=== PATIENT | male | born 1970 | race Caucasian/White ===

== ENCOUNTER 2017-01-06 19:38 | Inpatient (IN) | payer OTHER ==
[~2017-01-06] VITALS: Ht 177.8 cm; Wt 72.0 kg
[2017-01-06] MEDS ORDERED: SOD CHLORIDE 0.9% 1,000 ML IV STA (22:04)
[2017-01-06] MEDS ORDERED: OMEP20CA16 PO (22:20)
[2017-01-06] MEDS ORDERED: CITA20TA11 PO (22:20)
--- NOTE | 2017-01-06 22:21 | ERD ---
ER Documentation Chief Complaint Date/Time DATE: 01/06/17 TIME: 22:18 Chief Complaint Pt c/o epigastric pain for a month HPI 46-year-old male presents in emergency department for complaints of epigastric pain for 6 months now, worst in the last month. Patient was seen in a different emergency department, was told to possibly have a bleeding ulcer, was diagnosed also have gastritis. Patient is currently is on omeprazole. Patient's history of [id number] years ago. Patient described the pain as sharp pain, 6/10 scale, accompanied with acid reflux, intermittent. Patient denies any fever or chills. Patient's epigastric pain radiates to the back. Patient has history of hemorrhoids, has on and off rectal bleeding at times. Patient has scheduled EGD and colonoscopy in February 10, already seen a GI specialist. Patient states that the pain becomes more severe that is why he is here in the emergency department. ROS All systems reviewed and are negative except as per history of present illness. Medications Home Meds Reported Medications Citalopram Hydrobromide* (Celexa*) Unknown Strength Tablet, PO DAILY, #30 TAB 01/06/17 Omeprazole* (Omeprazole*) Unknown Strength Capsule., PO BID, #20 01/06/17 Allergies Allergies: Coded Allergies: No Known Allergy (Unverified , 01/06/17) PMhx/Soc History of Surgery: No Anesthesia Reaction: No Hx Neurological Disorder: No Hx Respiratory Disorders: No Hx Cardiac Disorders: No Hx Psychiatric Problems: No Hx Miscellaneous Medical Probl: Yes (gastroenteritis, ulcers, GERD, hemorrhoids , anemia) Hx Alcohol Use: Yes Hx Substance Use: No Hx Tobacco Use: Yes Smoking Status: Current every day smoker FmHx Family History: No coronary disease, No diabetes, No other Physical Exam Vitals Vital Signs Date Time Temp Pulse Resp B/P Pulse Ox O2 Delivery O2 Flow Rate FiO2 01/06/17 19:53 98.3 84 18 138/88 100 Physical Exam GENERAL: The patient is well developed and appropriate for usual state of health, in no apparent distress. CHEST: Clear to auscultation bilaterally. There are no rales, wheezes or rhonchi. HEART: Regular rate and rhythm. No murmurs, clicks, rubs or gallops. No S3 or S4. ABDOMEN: Soft, nontender and nondistended. Good bowel sounds. No rebound or guarding. No gross peritonitis. No gross organomegaly or masses. No [place] sign or McBurney point tenderness. BACK: No midline or flank tenderness. EXTREMITIES: Equal pulses bilaterally. There is no peripheral clubbing, cyanosis or edema. No focal swelling or erythema. Full range of motion. Grossly neurovascularly intact. NEURO: Alert and oriented. Cranial nerves 2-12 intact. Motor strength in all 4 extremities with 5/5 strength. Sensation grossly intact. Normal speech and gait. SKIN: There is no apparent rash or petechia. The skin is warm and dry. HEMATOLOGIC AND LYMPHATIC: There is no evidence of excessive bruising or lymphedema. No gross cervical, axillary, or inguinal lymphadenopathy. Result Diagram: 01/06/177 01/06/177 Results 24 hrs Laboratory Tests Test 01/06/17 22:17 White Blood Count 9.910^3/ul Red Blood Count 5.4210^6/ul Hemoglobin 14.1g/dl Hematocrit 43.9% Mean Corpuscular Volume 81.0fl Mean Corpuscular Hemoglobin 26.0pg Mean Corpuscular Hemoglobin Concent 32.1g/dl Red Cell Distribution Width % Platelet Count 27378^3/UL Mean Platelet Volume 9.2fl Neutrophils % 47.0% Lymphocytes % 41.0% Monocytes % 9.0% Eosinophils % 3.0% Neutrophils # 4.710^3/ul Lymphocytes # 4.110^3/ul Monocytes # 0.910^3/ul Eosinophils # 0.310^3/ul Platelet Estimate PLT APPEAR ADEQUATE Urine Color LT. YELLOW Urine Clarity CLEAR Urine pH 5.5 Urine Specific [place] 1.020 Urine Ketones NEGATIVE Urine Nitrite NEGATIVE Urine Bilirubin NEGATIVE Urine Urobilinogen 0.2 E.U./dL Urine Leukocyte Esterase NEGATIVE Urine Hemoglobin NEGATIVE Urine Glucose NEGATIVE% Urine Total Protein NEGATIVE Sodium Level 141mmol/L Potassium Level 3.9mmol/L Chloride Level 109mmol/L Carbon Dioxide Level 25mmol/L Anion Gap 11 Blood Urea Nitrogen 12mg/dl Creatinine 0.70mg/dl Glucose Level 127mg/dl Calcium Level 9.5mg/dl Total Bilirubin 0.0mg/dl Direct Bilirubin 0.00mg/dl Indirect Bilirubin 0.0mg/dl Aspartate Amino Transf (AST/SGOT) 21IU/L Alanine Aminotransferase (ALT/SGPT) 24IU/L Alkaline Phosphatase 64IU/L Troponin I < 0.012ng/ml Total Protein 6.0g/dl Albumin 4.0g/dl Globulin 2.00g/dl Albumin/Globulin Ratio 2.00 Lipase 113U/L Current Medications Medications (Trade) Dose Ordered Sig/Tony Route PRN Reason Start Time Stop Time Status Last Admin Dose Admin Sodium Chloride (NS) 1,000 ml @ 1,000 mls/hr Q1H STAT IV 01/06/17 22:04 01/06/17 23:03 DC 01/06/17 22:39 Pantoprazole 40 mg 40 mg ONCE ONCE IV 01/06/17 22:30 01/06/17 22:31 DC 01/06/17 22:42 Sodium Chloride (NS) 100 ml @ ud STK-MED ONCE .ROUTE 01/06/17 23:42 01/06/17 23:43 DC Iohexol (Omnipaque 300mg/ ml) 150 ml STK-MED ONCE .ROUTE 01/06/17 23:43 01/06/17 23:44 DC Protonix was given here in emergency department and IV fluids normal saline 1 L bolus. EKG was done, read by me and is normal sinus rhythm at a rate of 81, normal axis , there is no ST changes or changes in the EKG that indicates any cardiac emergencies at this time. Patient's EKG was also reviewed by Dr. Eastman. Impression: no acute findings on EKG PROCEDURE: CT ABDOMEN/PELVIS WITH CONTRAST CLINICAL INDICATION: 46-year-old male with abdominal pain. TECHNIQUE: The study was performed utilizing a GE [employer] VCT 64-slice CT scanner. Direct axial sections were obtained through the abdomen and pelvis with the use of 100 cc of at nonionic intravenous contrast material. Sagittal and coronal reformations were obtained. One or more of the following dose reduction techniques were utilized: automated exposure control, adjustment of the mA and/or kV according to patient's size or use of iterative reconstruction technique. The images were reviewed on a PACS workstation. CTD/vol = 8.6 mGy; Total Exam DLP = 527.5 mGy-cm. COMPARISON: None. FINDINGS: There is trace bibasilar subsegmental atelectasis. There is no evidence for significant pleural effusion. The liver has a normal size and contour without focal areas of abnormal density or contrast enhancement. No intrahepatic nor extrahepatic biliary ductal dilatation is seen. The gallbladder demonstrates no wall thickening nor pericholecystic fluid. No biliary stones are evident. The pancreas is without areas of abnormal attenuation or contrast enhancement. There is a filling defect identified within the proximal splenic vein which may represent flow artifact however this is worrisome for nonocclusive thrombus. This spleen is identified and has a normal size without abnormal density or contrast enhancement. The adrenal glands are unremarkable. The kidneys are functional bilaterally without abnormal density. No hydroureteronephrosis nor nephroureterolithiasis is evident. The urinary bladder contains urine. There is no evidence for bowel obstruction. The appendix is visualized and is without edema or surrounding inflammatory reaction. The prostate is not enlarged. There is no significant free fluid. The aortoiliac vessels are mildly calcified but without aneurysmal dilatation. The osseous structures are intact. IMPRESSION: 1. Questionable partially occlusive thrombus within the splenic vein. 2. No CT evidence for appendicitis. 3. Mild vascular calcifications. .Juan F Julian MD, MD Date Time Electronically viewed and signed by .Juan F Julian MD, MD on 01/07/2017 00:36 .M/ CC: PINKY ALTMAN NP Procedures/MDM Medical Decision Making: Discussed this case with my attending physician, Dr. Eastman, patient would need further evaluation, more radiology exams for further evaluation of the possible questionable thrombus in this splenic vein, patient will be admitted to the hospital, patient was advised about this, understands the plan, and with the plan. Dr. Eastman will facilitate patient's admission to the hospital. Departure Diagnosis: Primary Impression: Epigastric pain Condition: Stable PINKY ALTMAN NP Jan 06, 2017 22:21 PINKY ALTMAN NP Jan 06, 2017 22:21
[2017-01-06] MEDS ORDERED: PANTOPRAZOLE 40 MG INJ IV ONE (22:30)
[2017-01-06 22:35] LABS: ADD SCAN DIFF NO
[2017-01-06 22:44] LABS: ADD UMIC NO; UR BILIRUBIN (Dip) NEGATIVE (NEGATIVE); UR BLOOD (Dip) NEGATIVE (NEGATIVE); UR CLARITY CLEAR (CLEAR); UR COLOR LT. YELLOW (YELLOW); UR GLUCOSE (Dip) NEGATIVE (NEGATIVE); UR KETONES (Dip) NEGATIVE (NEGATIVE); UR LEUKOCYTE ESTERASE (Dip) NEGATIVE (NEGATIVE); UR NITRITE (Dip) NEGATIVE (NEGATIVE); UR TOTAL PROTEIN (Dip) NEGATIVE (NEGATIVE); UR UROBILINOGEN (Dip) 0.2 E.U./dL (0.1-1.0)
[2017-01-06 23:00] LABS: ABNORMAL IP MESSAGE 1; HEMATOCRIT 43.9 % (42.0-52.0); HEMOGLOBIN 14.1 g/dl (14.0-18.0); MEAN CORPUSCULAR HGB CONC 32.1 g/dl (32.0-37.0); MEAN PLATELET VOLUME 9.2 fl (7.4-10.4); PLATELET COUNT 395 10^3/UL (140-415); RED BLOOD COUNT 5.42 10^6/ul (4.70-6.10); WHITE BLOOD COUNT 9.9 10^3/ul (4.8-10.8)
[2017-01-06 23:17] LABS: EOSINOPHILS # 0.3 10^3/ul (0.0-0.5); LYMPHOCYTES # 4.1 10^3/ul (0.8-2.9); MONOCYTE # 0.9 10^3/ul (0.3-0.9); NEUTROPHIL # 4.7 10^3/ul (1.6-7.5); PLATELET ESTIMATE PLT APPEAR ADEQUATE
[2017-01-06] MEDS ORDERED: SOD CHLORIDE 0.9% 100 ML ONE (23:42)
[2017-01-06] MEDS ORDERED: IOHEXOL 300MG/ML 150 ML BTL ONE (23:43)
[2017-01-06 23:49] LABS: CALCIUM 9.5 mg/dl (8.4-10.2); CREATININE 0.7 mg/dl (0.61-1.24); POTASSIUM 3.9 mmol/L (3.5-5.1)
[2017-01-07] VITALS (14 sets, daily range): BP systolic 149–167; BP diastolic 67–90; PULSE 57–82; RESP 18–19; TEMP 97; Ht 177.8 cm; Wt 72.0 kg
--- NOTE | 2017-01-07 00:37 | RADRPT ---
PROCEDURE: CT ABDOMEN/PELVIS WITH CONTRAST CLINICAL INDICATION: 46-year-old male with abdominal pain. TECHNIQUE: The study was performed utilizing a GE [employer]ed VCT 64-slice CT scanner. Direct axia l sections were obtained through the abdomen and pelvis with the use of 100 cc of at nonionic intrav enous contrast material. Sagittal and coronal reformations were obtained. One or more of the followi ng dose reduction techniques were utilized: automated exposure control, adjustment of the mA and/or kV according to patient's size or use of iterative reconstruction technique. The images were review ed on a PACS workstation. CTD/vol = 8.6 mGy; Total Exam DLP = 527.5 mGy-cm. COMPARISON: None. FINDINGS: There is trace bibasilar subsegmental atelectasis. There is no evidence for significant pleural eff usion. The liver has a normal size and contour without focal areas of abnormal density or contrast enhancement. No intrahepatic nor extrahepatic biliary ductal dilatation is seen. The gallbladder dem onstrates no wall thickening nor pericholecystic fluid. No biliary stones are evident. The pancreas is without areas of abnormal attenuation or contrast enhancement. There is a filling defect identifi ed within the proximal splenic vein which may represent flow artifact however this is worrisome for nonocclusive thrombus. This spleen is identified and has a normal size without abnormal density or c ontrast enhancement. The adrenal glands are unremarkable. The kidneys are functional bilaterally wit hout abnormal density. No hydroureteronephrosis nor nephroureterolithiasis is evident. The urinary b ladder contains urine. There is no evidence for bowel obstruction. The appendix is visualized and is without edema or surrounding inflammatory reaction. The prostate is not enlarged. There is no si gnificant free fluid. The aortoiliac vessels are mildly calcified but without aneurysmal dilatation . The osseous structures are intact. IMPRESSION: 1. Questionable partially occlusive thrombus within the splenic vein. 2. No CT evidence for appendicitis. 3. Mild vascular calcifications. .Juan F Julian MD, Date Time Electronically viewed and signed by .Juan F Julian MD, on 01/07/2017 00:36 .M/
[2017-01-07] MEDS ORDERED: CITA-104 PO (01:42)
[2017-01-07] MEDS ORDERED: EXCED PO (01:42)
[2017-01-07] MEDS ORDERED: MULTI PO (01:42)
[2017-01-07] MEDS ORDERED: NACL 0.9% 3 ML SYG IV SCH (02:30)
[2017-01-07] MEDS: SOD CHLORIDE 0.9% 1,000 ML IV SCH ×2 (02:57→22:26)
--- NOTE | 2017-01-07 04:36 | HP ---
Date/Time of Note Date/Time of Note DATE: 01/07/17 TIME: 04:29 Assessment/Plan VTE Prophylaxis VTE Prophylaxis Intervention: SCD's Lines/Catheters IV [facility] Peripheral IV Assessment/Plan Chief Complaint/Hosp Course This is a 38-year-old male being admitted to telemetry floor for: #1 Abdominal pain: Possibly secondary to gastritis versus peptic ulcer disease versus other etiology. Protonix IV. Will consult GI for further evaluation and possible EGD/colonoscopy. Patient has not eaten since yesterday and is requesting to eat, I will put him currently on a full liquid diet with the possibility that patient may be needing bowel prep. #2 Splenic vein thrombosis: This possibly could be contributing to the abdominal pain. Will consult vascular surgery for further recs. #3 Anxiety: Continue citalopram daily. #4 Heavy alcohol use: banana bag, ativan iv prn #5 GI DVT prophylaxis: SCDs, Protonix Problems: HPI/ROS Admit Date/Time Admit Date/Time Jan 07, 2017 at 01:24 Hx of Present Illness Chief complaint: Abdominal pain 6 months 46-year-old male presents in emergency department for complaints of epigastric pain for 6 months now, worst in the last month. Patient was seen in a different emergency department, was told to possibly have a bleeding ulcer, was diagnosed also have gastritis. Patient is currently is on omeprazole. Patient's history of bleeding 15 years ago. Patient described the pain as sharp pain, 6/10 scale, accompanied with acid reflux, intermittent. Patient denies any fever or chills. Patient's epigastric pain radiates to the back. Patient has history of hemorrhoids, has on and off rectal bleeding at times. Patient states that the pain becomes more severe that is why he is here in the emergency department. Allergies: NKDA Medications: See SEP ROS Const: As per HPI Eyes : No pain discharge or redness or change in visual acuity ENT: No pain, sore throat, congestion, congestion, dysphagia or discharge Respiratory: No shortness of breath, cough, sputum, wheezing, or pleuritic pain Cardiovascular: No chest pain, palpitation, PND, or edema GI : As per HPI Genitourinary: No dysuria, hematuria, flank pain , discharge or CVA tenderness Musculoskeletal: No joint pain, back pain, neck pain, restricted range of motion in neck or joints Skin: No rash, bruising or hives Neuro: No headache, dizziness, syncope, seizure, focal weakness Endocrine: No polyuria, polydipsia, temperature intolerance Psych: No hallucination, depression, anxiety or suicidal ideation PMH/Family/Social Past Medical History Bleeding ulcers, hemorrhoids, anxiety Past Surgical History Past Surgical Hx: no surgical history Family History Significant Family History: no pertinent family hx Social History Alcohol Use: heavy (1-4 beers per night) Smoking Status: Current every day smoker (1 pack per day 30 years) Exam/Review of Systems Vital Signs Vitals Vital Signs Date Time Temp Pulse Resp B/P Pulse Ox O2 Delivery O2 Flow Rate FiO2 01/07/17 04:02 97.7 62 19 156/86 97 01/07/17 03:43 Room Air Exam Exam General: Patient is well-developed well-nourished The patient is alert oriented -3 lying comfortably in bed. HEENT: Atraumatic, normocephalic. The pupils are equal, round and reactive. Extraocular motor are intact Neck: Supple with full range of motion. No rigidity or meningismus Chest: Nontender Lungs: Clear to auscultation bilaterally no crackles rales or wheezing Heart: Normal S1-S2, Regular rhythm and rate. No murmur. Abdomen: Soft, tenderness to palpation at the epigastric region, normal bowel sounds Extremities: Normal to inspection, no edema no cyanosis Neurologic: Normal mental status, speech normal, cranial nerves II through XII are intact, motor and sensory are intact, no focal weakness Labs Result Diagram: 01/06/177 01/06/177 Medications Medications Current Medications Sodium Chloride (NS) 1,000 ml @ 50 mls/hr Q20H IV Last administered on t 02:57; Admin Dose 50 MLS/HR; Start 01/07/17 at 02:26 Ondansetron HCl (Zofran Inj) 4 mg Q6H PRN IV NAUSEA AND/OR VOMITING; Start at 02:30 Morphine Sulfate (morphine) 2 mg Q4H PRN IV PAIN LEVEL 7-10; Start 01/07/17 at 02:30 Pantoprazole (Protonix Iv) 40 mg DAILY@06 IV ; Start 01/07/17 at 06:00 Citalopram Hydrobromide (Celexa) 40 mg DAILY PO ; Start 01/07/17 at 09:00 HUSSAIN SALAZAR Jan 07, 2017 04:36
[2017-01-07] MEDS: PANTOPRAZOLE 40 MG INJ IV SCH (05:43)
[2017-01-07] MEDS ORDERED: LORAZEPAM 2 MG INJ IV PRN (08:00)
[2017-01-07] MEDS: CITALOPRAM 20 MG TAB PO SCH (08:56)
[2017-01-07] MEDS ORDERED: MULTIVITAMINS 10 ML, THIAMINE 100 MG, FOLIC ACID 1 MG in SOD CHLORIDE 0.9% 1,000 ML IVPB SCH (09:00)
--- NOTE | 2017-01-07 10:06 | PN ---
Date/Time of Note Date/Time of Note DATE: 01/07/17 TIME: 09:46 Assessment/Plan VTE Prophylaxis VTE Prophylaxis Intervention: SCD's Lines/Catheters IV Catheter Type (from Nrsg): Peripheral IV Assessment/Plan Assessment/Plan 46 yo M with no sig pmhx admitted for epigastric pain incidentally found to have splenic vein thrombosis #epigastric pain: clinical location suggestive of esophagitis/gastritis -GI to see today for likely EGD #splenic vein thrombosis: etiology and chronicity unclear. Pt without known risk factors which would predispose to VTE in portal system (ie h/o chronic liver disease) -heme consult placed to Dr Emmanuel -thrombophilia labs ordered -defer ATC pending EGD to evaluate for EVs prior to starting ATC dispo: pending GI and heme evals Subjective 24 Hr Interval Summary Free Text/Dictation Pt reports he is still having epigastric pain. Of note has been taking up to 12 Excedrin daily for headaches. Re finding of splenic vein thrombosis, pt denies any hx of chronic liver disease , previous VTE or family history of VTE. Exam/Review of Systems Vital Signs Vitals Vital Signs Date Time Temp Pulse Resp B/P Pulse Ox O2 Delivery O2 Flow Rate FiO2 01/07/17 08:00 59 01/07/17 07:13 97.8 19 156/82 97 01/07/17 03:43 Room Air Intake and Output 01/06/17 01/06/17 01/07/17 15:00 23:00 07:00 Intake Total 150 ml Balance 150 ml Exam anxious, laying in bed no mrg lungs clear mild ttp epigastric region and sup aspect of LUQ no rashes Results Result Diagram: 01/06/17221601/06/172216 Results 24 hrs Laboratory Tests Test 01/06/17 22:17 White Blood Count 9.9 Red Blood Count 5.42 Hemoglobin 14.1 Hematocrit 43.9 Mean Corpuscular Volume 81.0 L Mean Corpuscular Hemoglobin 26.0 L Mean Corpuscular Hemoglobin Concent 32.1 Red Cell Distribution Width Platelet Count 395 Mean Platelet Volume 9.2 Neutrophils % 47.0 Lymphocytes % 41.0 Monocytes % 9.0 Eosinophils % 3.0 Neutrophils # 4.7 Lymphocytes # 4.1 H Monocytes # 0.9 Eosinophils # 0.3 Platelet Estimate PLT APPEAR ADEQUATE Urine Color LT. YELLOW Urine Clarity CLEAR Urine pH 5.5 Urine Specific [place] 1.020 Urine Ketones NEGATIVE Urine Nitrite NEGATIVE Urine Bilirubin NEGATIVE Urine Urobilinogen 0.2 E.U./dL Urine Leukocyte Esterase NEGATIVE Urine Hemoglobin NEGATIVE Urine Glucose NEGATIVE Urine Total Protein NEGATIVE Sodium Level 141 Potassium Level 3.9 Chloride Level 109 Carbon Dioxide Level 25 Anion Gap 11 Blood Urea Nitrogen 12 Creatinine 0.70 Glucose Level 127 Calcium Level 9.5 Total Bilirubin 0.0 L Direct Bilirubin 0.00 Indirect Bilirubin 0.0 Aspartate Amino Transf (AST/SGOT) 21 Alanine Aminotransferase (ALT/SGPT) 24 Alkaline Phosphatase 64 Troponin I < 0.012 Total Protein 6.0 L Albumin 4.0 Globulin 2.00 Albumin/Globulin Ratio 2.00 Lipase 113 Medications Medications Current Medications Sodium Chloride (NS) 1,000 ml @ 50 mls/hr Q20H IV Last administered on 02:57; Admin Dose 50 MLS/HR; Start 01/07/17 at 02:26 Ondansetron HCl (Zofran Inj) 4 mg Q6H PRN IV NAUSEA AND/OR VOMITING; Start at 02:30 Morphine Sulfate (morphine) 2 mg Q4H PRN IV PAIN LEVEL 7-10; Start 01/07/17 at 02:30 Pantoprazole (Protonix Iv) 40 mg DAILY@06 IV Last administered on 01/07/17 05: 43; Admin Dose 40 MG; Start 01/07/17 at 06:00 Citalopram Hydrobromide (Celexa) 40 mg DAILY PO Last administered on 01/07/17 08:56; Admin Dose 40 MG; Start 01/07/17 at 09:00 Lorazepam (Ativan) 1 mg Q6H PRN IV AGITATION/ANXIETY; Start 01/07/17 at 08:00 Procedures Procedures labs reviewed. no transaminitis. INR ordered albumin nl imaging results reviewed. Of note, called radiology and spoke to Dr Calhoun who stated that on his review of imaging, it cannot be determined whether thrombus is acute or chronic FLORA GLASS MD Jan 07, 2017 10:05
[2017-01-07 12:12] LABS: PROTIME 13.2 Sec (12.2-14.2)
[2017-01-07] MEDS: morphine 2 MG INJ IV PRN ×3 (13:05→21:59)
[2017-01-07] MEDS: ONDANSETRON 4 MG INJ IV PRN ×2 (13:10→17:29)
--- NOTE | 2017-01-07 15:14 | CONS ---
Date/Time of Note Date/Time of Note DATE: 01/07/17 TIME: 15:09 Assessment/Plan Assessment/Plan Chief Complaint/Hosp Course 46 yo alcoholic male who presents with abdominal pain found with partial occlusion of the splenic vein. The most likely cause of splenic vein thrombosis is underlying cirrhosis but given that there is no cirrhosis seen on the CT A/P we must rule out other causes. Other etiologies of the splenic vein thrombosis may include pancreatitis of hepatocellular ca especially in a patient with a history of heavy drinking. A normal lactate however makes pancreatitis unlikely. We also have to rule out hematogic disorders such as, paroxysmal nocturnal hemoglobinuria, myeloproliferative disorder and hyper coagulable states. Given the relatively unremarkable CBC however, a myeloproliferate disorder or PNH would be unlikely. -will complete the hypercoagulable workup and check for antiphospholipid syndrome. AT III, FVL, Protein C and S levels were already ordered by primary team -will check AFP to evaluate for underlying HCC -f/u Hep panel -Given patient is currently not actively bleeding will start Eliquis 10mg BID x 7 days then decrease to 5mg BID. If we are unable to given an underlying cause of the splenic vein thrombosis, pt can receive 3-6 months total of anticoagulation Problems: (1) Splenic vein thrombosis Status: Chronic (2) Epigastric pain Status: Acute Consultation Date/Type/Reason Admit Date/Time Jan 07, 2017 at 01:24 Date of Consultation: Jan 07, 2017 Type of Consultation: Hematology Reason for Consultation splenic vein thrombosis Referring Provider: HUSSAIN SALAZAR Hx of Present Illness 46-year-old male presents in emergency department with epigastric pain for 6 months. He was previously told his abdominal pain was secondary to gastritis but his abdominal pain did not improve with omeprazole. Patient described the pain as sharp pain, 6/10 scale, accompanied with acid reflux, intermittent and radiating to the back. Pt states he has a history of GIB but currently denies any bleeding. A CT A/P was done which revealed a filling defect identified within the proximal splenic vein worrisome for nonocclusive thrombus. This spleen is identified and has a normal size without abnormal density or contrast enhancement. Nor is there any evidence of cirrhosis. We have been consulted for further workup of this splenic vein thrombosis. Constitutional: no complaints, poor po Eyes: no complaints ENT: no complaints Respiratory: pain Cardiovascular: no complaints Gastrointestinal: pain Genitourinary: no complaints Musculoskeletal: no complaints Skin: no complaints Neurologic: no complaints Past Medical History alcoholism Past Surgical History Past Surgical Hx: no surgical history Family History Significant Family History: no pertinent family hx Social History Alcohol Use: heavy (1-4 beers per night) Smoking Status: Current every day smoker (1 pack per day 30 years) Exam/Review of Systems Vital Signs Vitals Vital Signs Date Time Temp Pulse Resp B/P Pulse Ox O2 Delivery O2 Flow Rate FiO2 01/07/17 12:00 82 01/07/17 11:24 97.4 18 167/84 96 01/07/17 03:43 Room Air Intake and Output 01/06/17 01/06/17 01/07/17 15:00 23:00 07:00 Intake Total 150 ml Balance 150 ml Exam Constitutional: alert, oriented Head: normocephalic Eyes: nl conjunctiva ENMT: nl external ears & nose, nl lips & teeth Neck: non-tender, supple Respiratory: clear to auscultation Cardiovascular: regular rate and rhythm Gastrointestinal: distended, tender Musculoskeletal: nl extremities to inspection, nl gait and stance Results Result Diagram: 01/06/177 01/06/17 2217 Results 24 hrs Laboratory Tests Test 01/06/17 22:17 01/07/17 11:40 White Blood Count 9.9 Red Blood Count 5.42 Hemoglobin 14.1 Hematocrit 43.9 Mean Corpuscular Volume 81.0 L Mean Corpuscular Hemoglobin 26.0 L Mean Corpuscular Hemoglobin Concent 32.1 Red Cell Distribution Width Platelet Count 395 Mean Platelet Volume 9.2 Neutrophils % 47.0 Lymphocytes % 41.0 Monocytes % 9.0 Eosinophils % 3.0 Neutrophils # 4.7 Lymphocytes # 4.1 H Monocytes # 0.9 Eosinophils # 0.3 Platelet Estimate PLT APPEAR ADEQUATE Urine Color LT. YELLOW Urine Clarity CLEAR Urine pH 5.5 Urine Specific [place] 1.020 Urine Ketones NEGATIVE Urine Nitrite NEGATIVE Urine Bilirubin NEGATIVE Urine Urobilinogen 0.2 E.U./dL Urine Leukocyte Esterase NEGATIVE Urine Hemoglobin NEGATIVE Urine Glucose NEGATIVE Urine Total Protein NEGATIVE Sodium Level 141 Potassium Level 3.9 Chloride Level 109 Carbon Dioxide Level 25 Anion Gap 11 Blood Urea Nitrogen 12 Creatinine 0.70 Glucose Level 127 Calcium Level 9.5 Total Bilirubin 0.0 L Direct Bilirubin 0.00 Indirect Bilirubin 0.0 Aspartate Amino Transf (AST/SGOT) 21 Alanine Aminotransferase (ALT/SGPT) 24 Alkaline Phosphatase 64 Troponin I < 0.012 Total Protein 6.0 L Albumin 4.0 Globulin 2.00 Albumin/Globulin Ratio 2.00 Lipase 113 Prothrombin Time 13.2 Prothrombin Time Ratio 1.0 INR International Normalized Ratio 1.00 Hepatitis B Surface Antibody NEGATIVE Medications Medications Current Medications Sodium Chloride (NS) 1,000 ml @ 50 mls/hr Q20H IV Last administered on 02:57; Admin Dose 50 MLS/HR; Start 01/07/17 at 02:26 Ondansetron HCl (Zofran Inj) 4 mg Q6H PRN IV NAUSEA AND/OR VOMITING Last administered on 01/07/17 13:10; Admin Dose 4 MG; Start 01/07/17 at 02:30 Morphine Sulfate (morphine) 2 mg Q4H PRN IV PAIN LEVEL 7-10 Last administered on 01/07/17 13:05; Admin Dose 2 MG; Start 01/07/17 at 02:30 Pantoprazole (Protonix Iv) 40 mg DAILY@06 IV Last administered on 01/07/17 05: 43; Admin Dose 40 MG; Start 01/07/17 at 06:00 Citalopram Hydrobromide (Celexa) 40 mg DAILY PO Last administered on 01/07/17 08:56; Admin Dose 40 MG; Start 01/07/17 at 09:00 Lorazepam (Ativan) 1 mg Q6H PRN IV AGITATION/ANXIETY; Start 01/07/17 at 08:00 Nicotine (Nicoderm 21 Mg/ 24hr) 1 patch DAILY TRANSDERM ; Start 01/07/17 at 14: 00 SHELBY TAM M.D. Jan 07, 2017 15:14
[2017-01-07] MEDS: NICOTINE (21 MG/24 HR) PATCH TRANSDERM SCH (15:54)
[2017-01-07 16:20] LABS: HEPATITIS B CORE ANTIBODY NEGATIVE (NEGATIVE)
--- NOTE | 2017-01-07 17:24 | CONS ---
Date/Time of Note Date/Time of Note DATE: 01/07/17 TIME: 17:08 Assessment/Plan Assessment/Plan Additional Assessment/Plan Assessment * Abdominal pain Peptic ulcer disease vs gastritis * Splenic vein thrombosis by CT scan Plan * Protonix 40 mg BID * EGD risks and benefit explained to patient and agreed with the planned procedure Consultation Date/Type/Reason Admit Date/Time Jan 07, 2017 at 01:24 Date of Consultation: Jan 07, 2017 Type of Consultation: gastroenterology Reason for Consultation Abdominal pain Referring Provider: FLORA GLASS MD Hx of Present Illness 46 year old male who was seen at emergency room with chief complaint of abdominal pain which started 6 months ago with associated dyspepsia and pyrosis which gradually become severe 1 month ago.He claimed to have visited multiple emergency room and being told to have gastritis versus peptic ulcer disease. Patient denies any hematemesis,but with occasional hematochezia secondary to hemorrhoids.He denied chest pain,shortness of breath ,but with history of chronic intake of Excedrin. Emergency room course revealed wbc 9.9 ,hemoglobin 14.1 ,hematocrit 43.9.Ct abdomen pelvis Questionable partially occlusive thrombus within the splenic vein.. No CT evidence for appendicitis.. Mild vascular calcifications. I have discussed with the planned procedure and agreed with the plan Constitutional: no complaints, poor po Eyes: no complaints ENT: no complaints Respiratory: pain Cardiovascular: no complaints Gastrointestinal: pain Genitourinary: no complaints Musculoskeletal: no complaints Skin: no complaints Neurologic: no complaints Endocrine: no complaints Lymphatic: no complaints Psychological: nl mood/affect, no complaints Immunologic: no complaints Past Surgical History Past Surgical Hx: no surgical history Social History Alcohol Use: heavy (1-4 beers per night) Smoking Status: Current every day smoker (1 pack per day 30 years) Exam/Review of Systems Vital Signs Vitals Vital Signs Date Time Temp Pulse Resp B/P Pulse Ox O2 Delivery O2 Flow Rate FiO2 01/07/17 16:00 61 01/07/17 15:11 98.0 19 149/69 98 01/07/17 03:43 Room Air Intake and Output 01/06/17 01/06/17 01/07/17 15:00 23:00 07:00 Intake Total 150 ml Balance 150 ml Exam Constitutional: alert, oriented, well developed Psych: nl mood/affect, no complaints Head: atraumatic, normocephalic Eyes: EOMI, PERRL, nl conjunctiva, nl lids, nl sclera ENMT: nl external ears & nose, nl lips & teeth, nl nasal mucosa & septum Neck: non-tender, supple Respiratory: clear to auscultation, normal air movement Cardiovascular: nl pulses, regular rate and rhythm Gastrointestinal: nl liver, spleen, non-tender, soft, tender (epigastric/left upper quadrant) Musculoskeletal: nl extremities to inspection, nl gait and stance Extremities: normal pulses Neurological: [employer] II-XII intact, nl mental status, nl speech, nl strength Skin: nl turgor, No rash or lesions Lymph: nl lymph nodes Results Result Diagram: 01/06/17221601/06/17 221 Results 24 hrs Laboratory Tests Test 01/06/17 22:17 01/07/17 11:10 01/07/17 11:40 White Blood Count 9.9 Red Blood Count 5.42 Hemoglobin 14.1 Hematocrit 43.9 Mean Corpuscular Volume 81.0 L Mean Corpuscular Hemoglobin 26.0 L Mean Corpuscular Hemoglobin Concent 32.1 Red Cell Distribution Width Platelet Count 395 Mean Platelet Volume 9.2 Neutrophils % 47.0 Lymphocytes % 41.0 Monocytes % 9.0 Eosinophils % 3.0 Neutrophils # 4.7 Lymphocytes # 4.1 H Monocytes # 0.9 Eosinophils # 0.3 Platelet Estimate PLT APPEAR ADEQUATE Urine Color LT. YELLOW Urine Clarity CLEAR Urine pH 5.5 Urine Specific [place] 1.020 Urine Ketones NEGATIVE Urine Nitrite NEGATIVE Urine Bilirubin NEGATIVE Urine Urobilinogen 0.2 E.U./dL Urine Leukocyte Esterase NEGATIVE Urine Hemoglobin NEGATIVE Urine Glucose NEGATIVE Urine Total Protein NEGATIVE Sodium Level 141 Potassium Level 3.9 Chloride Level 109 Carbon Dioxide Level 25 Anion Gap 11 Blood Urea Nitrogen 12 Creatinine 0.70 Glucose Level 127 Calcium Level 9.5 Total Bilirubin 0.0 L Direct Bilirubin 0.00 Indirect Bilirubin 0.0 Aspartate Amino Transf (AST/SGOT) 21 Alanine Aminotransferase (ALT/SGPT) 24 Alkaline Phosphatase 64 Troponin I < 0.012 Total Protein 6.0 L Albumin 4.0 Globulin 2.00 Albumin/Globulin Ratio 2.00 Lipase 113 Hepatitis B Surface Antigen NEGATIVE Hepatitis B Core Total Antibody NEGATIVE Hepatitis C Antibody NEGATIVE Prothrombin Time 13.2 Prothrombin Time Ratio 1.0 INR International Normalized Ratio 1.00 Hepatitis B Surface Antibody NEGATIVE Medications Medications Current Medications Sodium Chloride (NS) 1,000 ml @ 50 mls/hr Q20H IV Last administered on 02:57; Admin Dose 50 MLS/HR; Start 01/07/17 at 02:26 Ondansetron HCl (Zofran Inj) 4 mg Q6H PRN IV NAUSEA AND/OR VOMITING Last administered on 01/07/17 13:10; Admin Dose 4 MG; Start 01/07/17 at 02:30 Morphine Sulfate (morphine) 2 mg Q4H PRN IV PAIN LEVEL 7-10 Last administered on 01/07/17 13:05; Admin Dose 2 MG; Start 01/07/17 at 02:30 Pantoprazole (Protonix Iv) 40 mg DAILY@06 IV Last administered on 01/07/17 05: 43; Admin Dose 40 MG; Start 01/07/17 at 06:00 Citalopram Hydrobromide (Celexa) 40 mg DAILY PO Last administered on 01/07/17 08:56; Admin Dose 40 MG; Start 01/07/17 at 09:00 Lorazepam (Ativan) 1 mg Q6H PRN IV AGITATION/ANXIETY; Start 01/07/17 at 08:00 Nicotine (Nicoderm 21 Mg/ 24hr) 1 patch DAILY TRANSDERM Last administered on 15:54; Admin Dose 1 PATCH; Start 01/07/17 at 14:00 Apixaban (Eliquis) 5 mg BID PO ; Start 01/14/17 at 21:00 ALEJANDRA MISTRY MD Jan 07, 2017 17:18
[2017-01-07] MEDS ORDERED: morphine 2 MG INJ IV ONE (20:00)
[2017-01-07] MEDS ORDERED: AL HYDROX/MG HYDROX/SIMETH 30 ML CUP PO ONE (20:00)
[2017-01-07] MEDS ORDERED: APIXABAN 5 MG TABLET PO SCH (21:00)
[2017-01-08] VITALS (18 sets, daily range): BP systolic 141–171; BP diastolic 66–91; PULSE 57–74; RESP 12–22
[2017-01-08] MEDS: SOD CHLORIDE 0.9% 1,000 ML IV SCH ×2 (01:44→15:46)
[2017-01-08] MEDS: PANTOPRAZOLE 40 MG INJ IV SCH ×2 (05:25→21:29)
[2017-01-08 06:53] LABS: ADD SCAN DIFF NO
[2017-01-08 06:56] LABS: ABNORMAL IP MESSAGE 1; BASOPHIL # 0.1 10^3/ul (0.0-0.1); BASOPHILS % 1.1 % (0.0-2.0); EOSINOPHILS # 0.5 10^3/ul (0.0-0.5); EOSINOPHILS % 5.6 % (0.0-7.0); HEMATOCRIT 42.2 % (42.0-52.0); LYMPHOCYTES # 3.2 10^3/ul (0.8-2.9); LYMPHOCYTES % 39.9 % (15.0-51.0); MEAN CORPUSCULAR HEMOGLOBIN 25.4 pg (29.0-33.0); MEAN CORPUSCULAR HGB CONC 30.8 g/dl (32.0-37.0); MEAN CORPUSCULAR VOLUME 82.4 fl (82.0-101.0); MEAN PLATELET VOLUME 8.9 fl (7.4-10.4); MONOCYTE # 0.7 10^3/ul (0.3-0.9); MONOCYTES % 8.9 % (0.0-11.0); NEUTROPHIL # 3.6 10^3/ul (1.6-7.5); NEUTROPHILS % 44.3 % (39.0-77.0); PLATELET COUNT 342 10^3/UL (140-415); RED BLOOD COUNT 5.12 10^6/ul (4.70-6.10); WHITE BLOOD COUNT 8.1 10^3/ul (4.8-10.8)
[2017-01-08 08:06] LABS: ALBUMIN 3.9 g/dl (3.3-4.9); ALBUMIN/GLOBULIN RATIO 2.16; BILIRUBIN,INDIRECT 0.1 mg/dl (0-1.1); BILIRUBIN,TOTAL 0.1 mg/dl (0.2-1.3); CALCIUM 8.9 mg/dl (8.4-10.2); CREATININE 0.76 mg/dl (0.61-1.24); POTASSIUM 3.6 mmol/L (3.5-5.1); TOTAL PROTEIN 5.7 g/dl (6.1-8.1)
[2017-01-08] MEDS: NICOTINE (21 MG/24 HR) PATCH TRANSDERM SCH (08:58)
[2017-01-08] MEDS: morphine 2 MG INJ IV PRN ×3 (08:58→20:04)
[2017-01-08] MEDS: ONDANSETRON 4 MG INJ IV PRN (08:58)
[2017-01-08] MEDS: CITALOPRAM 20 MG TAB PO SCH (08:58)
--- NOTE | 2017-01-08 10:09 | CONS ---
Date/Time of Note Date/Time of Note DATE: 01/08/17 TIME: 10:05 Assessment/Plan Assessment/Plan Chief Complaint/Hosp Course 46 yo alcoholic male who presents with abdominal pain found with partial occlusion of the splenic vein. The most likely cause of splenic vein thrombosis is underlying cirrhosis but given that there is no cirrhosis seen on the CT A/P we must rule out other causes. Other etiologies of the splenic vein thrombosis may include pancreatitis of hepatocellular ca especially in a patient with a history of heavy drinking. A normal lactate however makes pancreatitis unlikely. We also have to rule out hematogic disorders such as, paroxysmal nocturnal hemoglobinuria, myeloproliferative disorder and hyper coagulable states. Although given the relatively unremarkable CBC however, a myeloproliferate disorder or PNH would be unlikely. -will complete the hypercoagulable workup and check for antiphospholipid syndrome. AT III, FVL, Protein C and S levels were already ordered by primary team -will check AFP to evaluate for underlying HCC -f/u Hep panel -will await results of EGD prior to starting anticoagulation -if there is no evidence of active bleeding will start Eliquis 10mg BID x 7 days then decrease to 5mg BID. If we are unable to given an underlying cause of the splenic vein thrombosis, pt can receive 3-6 months total of anticoagulation Approximately 40 min were spent at patient's bedside and in coordination of his care Problems: Consultation Date/Type/Reason Admit Date/Time Jan 07, 2017 at 01:24 Initial Consult Date 01/07/17 Type of Consultation: Hematology Reason for Consultation splenic vein thrombosis Referring Provider: FLORA GLASS MD 24 HR Interval Summary Free Text/Dictation pt to have EGD today. no evidence of bleeding Exam/Review of Systems Vital Signs Vitals Vital Signs Date Time Temp Pulse Resp B/P Pulse Ox O2 Delivery O2 Flow Rate FiO2 01/08/17 08:00 60 01/08/17 07:32 98.0 17 141/82 95 01/07/17 03:43 Room Air Intake and Output 01/07/17 01/07/17 01/08/17 15:00 23:00 07:00 Intake Total 350 ml 850 ml Balance 350 ml 850 ml Exam Constitutional: alert, oriented Psych: nl mood/affect, no complaints Head: normocephalic Eyes: nl conjunctiva ENMT: nl external ears & nose Neck: non-tender, supple Respiratory: clear to auscultation Cardiovascular: regular rate and rhythm Gastrointestinal: soft Musculoskeletal: nl extremities to inspection, nl gait and stance Extremities: normal pulses Results Result Diagram: 01/08/1712 01/08/17 0612 Results 24 hrs Laboratory Tests Test 01/07/17 11:10 01/07/17 11:40 01/08/17 06:12 Hepatitis B Surface Antigen NEGATIVE Hepatitis B Core Total Antibody NEGATIVE Hepatitis C Antibody NEGATIVE Prothrombin Time 13.2 Prothrombin Time Ratio 1.0 INR International Normalized Ratio 1.00 Hepatitis B Surface Antibody NEGATIVE White Blood Count 8.1 Red Blood Count 5.12 Hemoglobin 13.0 L Hematocrit 42.2 Mean Corpuscular Volume 82.4 Mean Corpuscular Hemoglobin 25.4 L Mean Corpuscular Hemoglobin Concent 30.8 L Red Cell Distribution Width Platelet Count 342 Mean Platelet Volume 8.9 Neutrophils % 44.3 Lymphocytes % 39.9 Monocytes % 8.9 Eosinophils % 5.6 Basophils % 1.1 Nucleated Red Blood Cells % 0.0 Neutrophils # 3.6 Lymphocytes # 3.2 H Monocytes # 0.7 Eosinophils # 0.5 Basophils # 0.1 Nucleated Red Blood Cells # 0.0 Sodium Level 141 Potassium Level 3.6 Chloride Level 108 Carbon Dioxide Level 28 Anion Gap 9 Blood Urea Nitrogen 6 L Creatinine 0.76 Glucose Level 89 Calcium Level 8.9 Magnesium Level 2.0 Total Bilirubin 0.1 L Direct Bilirubin 0.00 Indirect Bilirubin 0.1 Aspartate Amino Transf (AST/SGOT) 22 Alanine Aminotransferase (ALT/SGPT) 29 Alkaline Phosphatase 65 Total Protein 5.7 L Albumin 3.9 Globulin 1.80 Albumin/Globulin Ratio 2.16 Medications Medications Current Medications Sodium Chloride (NS) 1,000 ml @ 50 mls/hr Q20H IV Last administered on 01:44; Admin Dose 50 MLS/HR; Start 01/07/17 at 02:26 Ondansetron HCl (Zofran Inj) 4 mg Q6H PRN IV NAUSEA AND/OR VOMITING Last administered on 01/08/17 08:58; Admin Dose 4 MG; Start 01/07/17 at 02:30 Morphine Sulfate (morphine) 2 mg Q4H PRN IV PAIN LEVEL 7-10 Last administered on 01/08/17 08:58; Admin Dose 2 MG; Start 01/07/17 at 02:30 Pantoprazole (Protonix Iv) 40 mg DAILY@06 IV Last administered on 01/08/17 05: 25; Admin Dose 40 MG; Start 01/07/17 at 06:00 Citalopram Hydrobromide (Celexa) 40 mg DAILY PO Last administered on 01/08/17 08:58; Admin Dose 40 MG; Start 01/07/17 at 09:00 Lorazepam (Ativan) 1 mg Q6H PRN IV AGITATION/ANXIETY; Start 01/07/17 at 08:00 Nicotine (Nicoderm 21 Mg/ 24hr) 1 patch DAILY TRANSDERM Last administered on 08:58; Admin Dose 1 PATCH; Start 01/07/17 at 14:00 Apixaban (Eliquis) 5 mg BID PO ; Start 01/14/17 at 21:00 SHELBY TAM M.D. Jan 08, 2017 10:09
--- NOTE | 2017-01-08 11:27 | PN ---
Date/Time of Note Date/Time of Note DATE: 01/08/17 TIME: 11:27 Assessment/Plan VTE Prophylaxis VTE Prophylaxis Intervention: SCD's Lines/Catheters IV Catheter Type (from Nrsg): Peripheral IV Assessment/Plan Assessment/Plan 46 yo M with no sig pmhx admitted for epigastric pain incidentally found to have splenic vein thrombosis #epigastric pain: clinical location suggestive of esophagitis/gastritis -EGD today #splenic vein thrombosis: etiology and chronicity unclear. Pt without known risk factors which would predispose to VTE in portal system (ie h/o chronic liver disease) -heme following -thrombophilia labs ordered -defer ATC pending EGD to evaluate for EVs prior to starting ATC dispo: pending GI and heme evals Subjective 24 Hr Interval Summary Free Text/Dictation Abd pain improving. Anxious about his EGD Exam/Review of Systems Vital Signs Vitals Vital Signs Date Time Temp Pulse Resp B/P Pulse Ox O2 Delivery O2 Flow Rate FiO2 01/08/17 08:00 60 01/08/17 07:32 98.0 17 141/82 95 01/07/17 03:43 Room Air Intake and Output 01/07/17 01/07/17 01/08/17 15:00 23:00 07:00 Intake Total 350 ml 850 ml Balance 350 ml 850 ml Exam nad laying in bed no mrg lungs clear abd soft no le edema labs hepatitis seros neg Results Result Diagram: 01/08/17 0612 01/08/17 0612 Results 24 hrs Laboratory Tests Test 01/07/17 11:40 01/08/17 06:12 Prothrombin Time 13.2 Prothrombin Time Ratio 1.0 INR International Normalized Ratio 1.00 Hepatitis B Surface Antibody NEGATIVE White Blood Count 8.1 Red Blood Count 5.12 Hemoglobin 13.0 L Hematocrit 42.2 Mean Corpuscular Volume 82.4 Mean Corpuscular Hemoglobin 25.4 L Mean Corpuscular Hemoglobin Concent 30.8 L Red Cell Distribution Width Platelet Count 342 Mean Platelet Volume 8.9 Neutrophils % 44.3 Lymphocytes % 39.9 Monocytes % 8.9 Eosinophils % 5.6 Basophils % 1.1 Nucleated Red Blood Cells % 0.0 Neutrophils # 3.6 Lymphocytes # 3.2 H Monocytes # 0.7 Eosinophils # 0.5 Basophils # 0.1 Nucleated Red Blood Cells # 0.0 Sodium Level 141 Potassium Level 3.6 Chloride Level 108 Carbon Dioxide Level 28 Anion Gap 9 Blood Urea Nitrogen 6 L Creatinine 0.76 Glucose Level 89 Calcium Level 8.9 Magnesium Level 2.0 Total Bilirubin 0.1 L Direct Bilirubin 0.00 Indirect Bilirubin 0.1 Aspartate Amino Transf (AST/SGOT) 22 Alanine Aminotransferase (ALT/SGPT) 29 Alkaline Phosphatase 65 Total Protein 5.7 L Albumin 3.9 Globulin 1.80 Albumin/Globulin Ratio 2.16 Medications Medications Current Medications Sodium Chloride (NS) 1,000 ml @ 50 mls/hr Q20H IV Last administered on 01:44; Admin Dose 50 MLS/HR; Start 01/07/17 at 02:26 Ondansetron HCl (Zofran Inj) 4 mg Q6H PRN IV NAUSEA AND/OR VOMITING Last administered on 01/08/17 08:58; Admin Dose 4 MG; Start 01/07/17 at 02:30 Morphine Sulfate (morphine) 2 mg Q4H PRN IV PAIN LEVEL 7-10 Last administered on 01/08/17 08:58; Admin Dose 2 MG; Start 01/07/17 at 02:30 Pantoprazole (Protonix Iv) 40 mg DAILY@06 IV Last administered on 01/08/17 05: 25; Admin Dose 40 MG; Start 01/07/17 at 06:00 Citalopram Hydrobromide (Celexa) 40 mg DAILY PO Last administered on 01/08/17 08:58; Admin Dose 40 MG; Start 01/07/17 at 09:00 Lorazepam (Ativan) 1 mg Q6H PRN IV AGITATION/ANXIETY; Start 01/07/17 at 08:00 Nicotine (Nicoderm 21 Mg/ 24hr) 1 patch DAILY TRANSDERM Last administered on 08:58; Admin Dose 1 PATCH; Start 01/07/17 at 14:00 Apixaban (Eliquis) 5 mg BID PO ; Start 01/14/17 at 21:00 FLORA GLASS MD Jan 08, 2017 11:27
[2017-01-08] MEDS ORDERED: LIDOCAINE 2% (SDV) 5 ML INJ ONE (17:01)
[2017-01-08] MEDS ORDERED: MIDAZOLAM 1 MG/ML 2 ML INJ ONE (17:01)
[2017-01-08] MEDS ORDERED: PROPOFOL 20 ML ONE (17:01)
--- NOTE | 2017-01-08 19:58 | CONS ---
DATE OF ADMISSION: 01/07/2017 DATE OF CONSULTATION: 01/08/2017 Dear Doctors: Mr. Dior is a 46-year-old alcoholic gentleman who presented to [facility] to abdominal pain that he has had for some time and upon evaluation was identified on CT scan of the abdomen and pelvis to have what seems to be a splenic vein thrombosis. A vascular surgery co nsultation was obtained for further evaluation. The patient is currently a long-time smoker, 1 pack per day for many years. 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 At the moment, the patie nt does complain of some mild abdominal pain. Otherwise, he denies shortness of breath, chest pain, nausea, vomiting. He denies lower extremity claudication, rest pain-like symptoms. REVIEW OF SYSTEMS: A 14-point review performed, negative except what is mentioned in the HPI. PAST MEDICAL HISTORY: Entails alcoholic abuse, smoker, hypertension, excessive use of Excedrin, ANGELINA D, gastritis, GI bleed. SURGICAL HISTORY: EGD. FAMILY HISTORY: Positive for hypertension. SOCIAL HISTORY: Active smoker, 1 pack per day for many years. Alcohol: Drinks more than socially. Denies IV drug abuse. PHYSICAL EXAMINATION: GENERAL: Alert, oriented x3. No apparent distress. HEENT: Normocephalic, atraumatic. PERRLA, EOMI. Mucosa moist. No jaundice. NECK: No carotid bruit. Supple. CARDIOVASCULAR: S1, S2 present. No murmurs. PULMONARY: Clear to auscultation bilaterally. No crackles. ABDOMEN: Soft, nontender, nondistended. Bowel sounds positive. LOWER EXTREMITIES: Palpable femoral pulses. Palpable pedal pulses. Motor, sensory intact. Capill joyce refill 2 to 3 seconds. No surgical scars. ASSESSMENT AND PLAN: Splenic vein thrombosis: Due to the patient's new findings upon his CT scan o f the abdomen and pelvis, likely related to history of his drinking or underlying cancer, I do agree that the patient should have hypercoagulable workup for further evaluation as he is young to develo p such findings. Would recommend for the patient to be placed on anticoagulation if he doesn't have any contraindicat ions such as a gastric ulcer or duodenal ulcer secondary to his excessive use of Excedrin tablets an d alcohol. Appreciate hematology evaluation and workup. Will follow and agree with anticoagulation. I discussed findings, plan, management with the patient. He understands. Discussed smoking cessation and asked if the patient would like to have any further help with his ov eruse of alcohol and Excedrin medications. He is to speak with a secondary social studies teacher. Thank you for allowing us to partake in the care of your patient. Please call with any questions. Dictated By: CHANELLE CRUZ/ZAKIYA Conf#: [id number] DID#: [id number]
[2017-01-08] MEDS ORDERED: APIXABAN 5 MG TABLET PO SCH (21:00)
--- NOTE | 2017-01-08 21:31 | GILP ---
DATE OF PROCEDURE: 01/08/2017 DATE: 01/08/2017 NAME OF PROCEDURE: Esophagogastroduodenoscopy with biopsies. SURGEON: Alejandra Velez MD. HISTORY AND INDICATIONS: The patient is being evaluated for abdominal pain and anemia. PREMEDICATION: Monitored anesthesia care by anesthesiologist. INSTRUMENT USED: Olympus panendoscope. TECHNIQUE: After informed consent, with the patient/relatives understanding the procedure, its indic ations, potential risks, and complications, including but not limited to: allergic reaction, bleedin g, perforation or infection, and after all pertinent questions were answered to the patient's satisf action, the patient/relatives signed witnessed informed consent. Following this, premedication was administered slowly IV push under careful cardiovascular and respi ratory monitoring with pulse oximetry, automatic blood pressure and monitoring manager. Once the sedative effect was achieved the patient was place in the left lateral decubitus, the panen doscope was introduced and advanced under visual control. Careful examination of the upper gastrointestinal tract, both on insertion as well as withdrawal of the instrument disclosed the following findings: ESOPHAGUS: The mucosa of the entire esophagus appears within normal limits. There is no evidence o f esophagitis, varices, neoplasm, or stricture. No hiatal hernia identified. STOMACH: Upon entrance to the stomach, air was insufflated, the gastric vyas distended normally. The mucosa of the fundus, body, and antrum of the stomach was carefully examined, shows erythema and edema of the mucosa of a moderate degree. There is also a 1.5 cm deep gastric ulceration in the pr epyloric antrum. The biopsies were obtained. PYLORUS: The pylorus appears patent and within normal limits, with no evidence of gastric outlet ob struction. DUODENUM: The duodenal mucosa was carefully examined in the duodenal bulb as well as the second por tion of the duodenum and appears unremarkable with no evidence of duodenitis, ulcer, or neoplasm. The instrument was then withdrawn, the patient tolerated the procedure well and was transfer out of the endoscopy suite awake, and in good condition to continue recovery under observation IMPRESSION: A 1.5 cm deep antrum prepyloric gastric ulceration, benign endoscopic appearance and no stigmata. Biopsies obtained. Rule out H. pylori infection, biopsies obtained. PLAN: The patient will be treated with PPIs b.i.d. Further recommendation will depend on patient's clinical course as well as review of biopsies. Followup endoscopy in 8 weeks is recommended to ass ess healing of gastric ulceration. Dictated By: ALEJANDRA VELEZ MS/ZAKIYA Conf#: [id number] DID#: [id number] CC: HUSSAIN SALAZAR MD; ALEJANDRA VELEZ;*EndCC*
[2017-01-09 07:21] VITALS: BP 144/84; RESP 18
[2017-01-09] MEDS: PANTOPRAZOLE 40 MG INJ IV SCH (09:41)
[2017-01-09] MEDS: CITALOPRAM 20 MG TAB PO SCH (09:42)
[2017-01-09] MEDS: NICOTINE (21 MG/24 HR) PATCH TRANSDERM SCH (09:47)
[2017-01-09] MEDS: morphine 2 MG INJ IV PRN (10:50)
[2017-01-09] MEDS ORDERED: APIXABAN 5 MG TABLET PO SCH ×2 (11:30→21:00)
[2017-01-09] MEDS ORDERED: POLYETHYLENE GLYCOL 17 GM PACKET PO ONE (12:00)
--- NOTE | 2017-01-09 12:20 | CONS ---
Date/Time of Note Date/Time of Note DATE: 01/09/17 TIME: 12:15 Assessment/Plan Assessment/Plan Chief Complaint/Hosp Course 46 yo alcoholic male who presents with abdominal pain found with partial occlusion of the splenic vein. The most likely cause of splenic vein thrombosis is underlying cirrhosis but given that there is no cirrhosis seen on the CT A/P we must rule out other causes. Other etiologies of the splenic vein thrombosis may include pancreatitis or hepatocellular ca especially in a patient with a history of heavy drinking. -A normal lactate however makes pancreatitis unlikely. -relatively unremarkable CBC however, a myeloproliferate disorder or PNH would be unlikely -AFP normal and CT shows no liver lesions making HCC unlikely Plan #f/u hypercoagulable workup and check for antiphospholipid syndrome. AT III, FVL , Protein C and S levels were already ordered by primary team #Given no evidence of active bleeding will start Eliquis 10mg BID x 7 days then decrease to 5mg BID. If we are unable to given an underlying cause of the splenic vein thrombosis, pt can receive 3-6 months total of anticoagulation Approximately 40 min were spent at patient's bedside and in coordination of his care Problems: Consultation Date/Type/Reason Admit Date/Time Jan 07, 2017 at 01:24 Initial Consult Date 01/07/17 Type of Consultation: Hematology Referring Provider: FLORA GLASS MD 24 HR Interval Summary Free Text/Dictation no acute overnight events. pt had EGD done which demonstrated a 1.5 cm deep antrum prepyloric gastric ulceration. it was not actively bleeding Exam/Review of Systems Vital Signs Vitals Vital Signs Date Time Temp Pulse Resp B/P Pulse Ox O2 Delivery O2 Flow Rate FiO2 01/09/17 07:21 98.2 60 18 144/84 92 01/08/17 20:00 Room Air Intake and Output 01/08/17 01/08/17 01/09/17 15:00 23:00 07:00 Intake Total 570 ml 690 ml Output Total 4 ml Balance 566 ml 690 ml Exam Constitutional: alert, oriented Psych: no complaints Head: atraumatic, normocephalic Eyes: nl conjunctiva ENMT: nl external ears & nose Neck: non-tender, supple Respiratory: clear to auscultation, normal air movement Cardiovascular: regular rate and rhythm Gastrointestinal: soft Musculoskeletal: nl extremities to inspection, nl gait and stance Extremities: normal pulses Results Result Diagram: 01/08/17 0612 01/08/17 0612 Results 24 hrs Laboratory Tests Test 01/08/17 14:05 Alpha Fetoprotein 2.17 Medications Medications Current Medications Sodium Chloride (NS) 1,000 ml @ 50 mls/hr Q20H IV Last administered on 15:46; Admin Dose 50 MLS/HR; Start 01/07/17 at 02:26 Ondansetron HCl (Zofran Inj) 4 mg Q6H PRN IV NAUSEA AND/OR VOMITING Last administered on 01/08/17 08:58; Admin Dose 4 MG; Start 01/07/17 at 02:30 Morphine Sulfate (morphine) 2 mg Q4H PRN IV PAIN LEVEL 7-10 Last administered on 01/09/17 10:50; Admin Dose 2 MG; Start 01/07/17 at 02:30 Citalopram Hydrobromide (Celexa) 40 mg DAILY PO Last administered on 01/09/17 09:42; Admin Dose 40 MG; Start 01/07/17 at 09:00 Lorazepam (Ativan) 1 mg Q6H PRN IV AGITATION/ANXIETY; Start 01/07/17 at 08:00 Nicotine (Nicoderm 21 Mg/ 24hr) 1 patch DAILY TRANSDERM Last administered on 09:47; Admin Dose 1 PATCH; Start 01/07/17 at 14:00 Pantoprazole (Protonix Iv) 40 mg BID IV Last administered on 01/09/17 09:41; Admin Dose 40 MG; Start 01/08/17 at 21:00 Apixaban (Eliquis) 10 mg DAILY PO ; Start 01/09/17 at 11:30; Stop 01/14/17 at 11 :29 Apixaban (Eliquis) 5 mg DAILY PO ; Start 01/14/17 at 11:30; Stop 04/14/17 at 11: 29 SHELBY TAM M.D. Jan 09, 2017 12:20
[2017-01-09 15:19] LABS: PROTEIN C 107 % normal (70-180)
--- NOTE | 2017-01-09 15:56 | PN ---
Date/Time of Note Date/Time of Note DATE: 01/09/17 TIME: 15:45 Assessment/Plan VTE Prophylaxis VTE Prophylaxis Intervention: ambulation Lines/Catheters IV [facility] Peripheral IV Assessment/Plan Assessment/Plan Assessment * Prepyloric ulcer * Splenic vein thrombosis Plan * Pantoprazole 40 mg BID for 8 weeks * Follow up in 8 weeks for repeat endoscopy to asses the ulcer * Continue present management * Stable for outpatient management Subjective 24 Hr Interval Summary Free Text/Dictation * course reviewed with RN * Patient seen and examined * EGD A 1.5 cm deep antrum prepyloric gastric ulceration, benign endoscopic appearance and no stigmata. Biopsies obtained. Rule out H. pylori infection, biopsies obtained. * Biopsy A-Gastric biopsies: -- Mild patchy acute gastritis. -- A Giemsa stain with an appropriate control is negative for Helicobacter pylori organisms. -- No dysplasia or intestinal metaplasia is identified. X-Zrb-multdja ulcer biopsies: -- Gastric mucosa with mild eosinophilic cell infiltrate and foveolar hyperplasia and adjacent acute fibrinoneutrophilic exudate, compatible with an ulcer site. -- A Giemsa stain with an appropriate control is negative for Helicobacter pylori organisms. -- No malignancy, dysplasia or intestinal metaplasia is identified. Exam/Review of Systems Vital Signs Vitals Vital Signs Date Time Temp Pulse Resp B/P Pulse Ox O2 Delivery O2 Flow Rate FiO2 01/09/17 07:21 98.2 60 18 144/84 92 01/08/17 20:00 Room Air Intake and Output 01/08/17 01/08/17 01/09/17 15:00 23:00 07:00 Intake Total 570 ml 690 ml Output Total 4 ml Balance 566 ml 690 ml Exam Constitutional: alert Neck: non-tender, supple Respiratory: clear to auscultation, normal air movement Cardiovascular: nl pulses, regular rate and rhythm Gastrointestinal: nl liver, spleen, non-tender, soft Musculoskeletal: nl extremities to inspection, nl gait and stance Extremities: normal pulses Neurological: nl speech, nl strength Skin: nl turgor Lymph: nl lymph nodes Results Result Diagram: 01/08/1761101/08/17611 Medications Medications Current Medications Sodium Chloride (NS) 1,000 ml @ 50 mls/hr Q20H IV Last administered on t 15:46; Admin Dose 50 MLS/HR; Start 01/07/17 at 02:26 Ondansetron HCl (Zofran Inj) 4 mg Q6H PRN IV NAUSEA AND/OR VOMITING Last administered on 01/08/17 08:58; Admin Dose 4 MG; Start 01/07/17 at 02:30 Morphine Sulfate (morphine) 2 mg Q4H PRN IV PAIN LEVEL 7-10 Last administered on 01/09/17 10:50; Admin Dose 2 MG; Start 01/07/17 at 02:30 Citalopram Hydrobromide (Celexa) 40 mg DAILY PO Last administered on 01/09/17 09:42; Admin Dose 40 MG; Start 01/07/17 at 09:00 Lorazepam (Ativan) 1 mg Q6H PRN IV AGITATION/ANXIETY; Start 01/07/17 at 08:00 Nicotine (Nicoderm 21 Mg/ 24hr) 1 patch DAILY TRANSDERM Last administered on 09:47; Admin Dose 1 PATCH; Start 01/07/17 at 14:00 Pantoprazole (Protonix Iv) 40 mg BID IV Last administered on 01/09/17 09:41; Admin Dose 40 MG; Start 01/08/17 at 21:00 Apixaban (Eliquis) 10 mg BID PO ; Start 01/09/17 at 21:00; Stop 01/15/17 at 09: 01 Apixaban (Eliquis) 5 mg BID PO ; Start 01/16/17 at 09:00; Stop 04/14/17 at 08:59 ZUNILDA GUSMAN NP Jan 09, 2017 15:55
[2017-01-09] MEDS ORDERED: OMEP40CA6 PO (16:32)
[2017-01-09] MEDS ORDERED: NICO1PAT6 TRANSDERM (16:32)
[2017-01-09] MEDS ORDERED: APIX5TAB PO (16:32)
[2017-01-09] MEDS ORDERED: PANT40TA4 PO (16:33)
--- NOTE | 2017-01-09 16:55 | PDOCDIS ---
Discharge Instructions DIAGNOSIS Discharge Diagnosis: gastric ulcer, splenic vein thrombosis CONDITION Patient Condition: Good HOME CARE INSTRUCTIONS: Diet Instructions: RegularSpecial Diet: regular ACTIVITY: Activity Restrictions: Slowly Increase Activity FOLLOW UP/APPOINTMENTS Appointments Gastroenterology: Dr Adelfo Velez as already scheduled Office Address [address] [facility] [place] [address] Office Hematology within [address] Kim Emmanuel Office Address [address] [facility] [address] [place] [address] Office FLORA GLASS MD Jan 09, 2017 16:55
--- NOTE | 2017-01-09 16:58 | DS ---
Date/Time of Note Date/Time of Note DATE: 01/09/17 TIME: 16:55 Discharge Summary Admission/Discharge Info Admit Date/Time Jan 07, 2017 at 01:24 Discharge Date/Time Final Diagnosis prepyloric ulcer, splenic vein thrombosis Patient Condition: Good Consults hematology, gastroenterology, vascular surgery Procedures CT AP 6.12 IMPRESSION: 1. Questionable partially occlusive thrombus within the splenic vein. 2. No CT evidence for appendicitis. 3. Mild vascular calcifications. EGD 01.08: IMPRESSION: A 1.5 cm deep antrum prepyloric gastric ulceration, benign endoscopic appearance and no stigmata. Biopsies obtained. Rule out H. pylori infection, biopsies obtained. Hepatitis B and C serologies negative Protein C activity wnl, Protein S and Factor 5 Le[place], prothrombin gene mutation pending at time of discharge Hx of Present Illness 46-year-old male presents in emergency department for complaints of epigastric pain for 6 months now, worst in the last month. Patient was seen in a different emergency department, was told to possibly have a bleeding ulcer, was diagnosed also have gastritis. Patient is currently is on omeprazole. Patient's history of bleeding 15 years ago. Patient described the pain as sharp pain, 6/10 scale, accompanied with acid reflux, intermittent. Patient denies any fever or chills. Patient's epigastric pain radiates to the back. Patient has history of hemorrhoids, has on and off rectal bleeding at times. Patient states that the pain becomes more severe that is why he is here in the emergency department. Hospital Course CT A/P with incidental finding of splenic vein thrombosis. As etiology unclear ( pt without history of cirrhosis), hematology was consulted. Hypercoagulable workup sent and results pending at time of discharge. For his abd pain, pt seen by GI. Pt underwent EGD with results as above. HPylori test results were pending at time of discharge. Pt is to be discharged on BID PPI as per GI recs. Pt started on Eliquis for his splenic vein thrombosis prior to discharge. This will be continued for at least 3 months, duration to be determined at heme follow up. Smoking cessation advised. Home Meds Active Scripts Pantoprazole* (Pantoprazole*) 40 Mg Tablet., 40 MG PO BID for 60 Days, TAB Prov:FLORA GLASS MD 01/09/17 Apixaban* (Eliquis*) 5 Mg Tablet, 5 MG PO BID for 21 Days, #42 TAB DO NOT START THIS LOWER DOSE UNTIL YOU FINISH YOUR WEEK OF HIGH DOSE PILLS Prov:FLORA GLASS MD 01/09/17 Apixaban* (Eliquis*) 5 Mg Tablet, 10 MG PO BID for 7 Days, #14 TAB TAKE THIS HIGHER DOSE FOR THE FIRST WEEK Prov:FLORA GLASS MD 01/09/17 Nicotine* (Nicotine* Patch) 21 mg/day Patch, 1 PATCH TRANSDERM DAILY for 7 Days , #7 Prov:FLORA GLASS MD 01/09/17 Reported Medications Acetaminophen/Aspirin/Caffeine* (Excedrin*) 1 Tab Tab, 2 TAB PO, TAB 01/07/17 Multivitamins* (Theragran*) 1 Tab Tab, 1 TAB PO DAILY, TAB 01/07/17 Citalopram Hydrobromide* (Citalopram Hydrobromide*) 40 Mg Tablet, 40 MG PO DAILY , #30 TAB 01/07/17 Omeprazole* (Omeprazole*) Unknown Strength Capsule.dr, PO BID, #20 01/06/17 Discontinued Reported Medications Citalopram Hydrobromide* (Celexa*) Unknown Strength Tablet, PO DAILY, #30 TAB 01/06/17 Primary Care Provider Not On Staff Doctor FLORA GLASS MD Jan 09, 2017 16:58
[2017-01-14] MEDS ORDERED: APIXABAN 5 MG TABLET PO SCH ×2 (11:30→21:00)
[2017-01-16] MEDS ORDERED: APIXABAN 5 MG TABLET PO SCH (09:00)
== END 2017-01-09 18:20 | disposition home or self-care (01) | DRG 384 ==
LOC: FTE 19:38 → TEL 01-07 01:24 → MS2 01-08 13:51
PROVIDERS: ADMIT Family Medicine; ATTEND Family Medicine
PROC: 0DB68ZX Excision of Stomach, Via Natural or Artificial Opening Endoscopic, Diagnostic (ICD-10-PCS; principal; 2017-01-08 20:30)
DX: K25.9 Gastric ulcer, unspecified as acute or chronic, without hemorrhage or perforation (principal); I82.890 Acute embolism and thrombosis of other specified veins; F41.9 Anxiety disorder, unspecified; K29.00 Acute gastritis without bleeding; F17.200 Nicotine dependence, unspecified, uncomplicated; Z72.89 Other problems related to lifestyle
CPT/HCPCS: 36415; 74177; 80053; 81003; 81240; 82105; 83690; 83735; 83890; 84484; 85025; 85300; 85302; 85305; 85610; 85613; 86146; 86147; 86704; 86706; 86803; 87340; 88305; 88312; 93005; 96374; C9113; J2250; J2270; J2405; J3411; J7030; Q9967

== ENCOUNTER 2017-04-14 12:51 | Day surgery (SDC) | payer OTHER ==
[~2017-04-14] VITALS: Ht 177.8 cm; Wt 74.5 kg
[~2017-04-14 12:51] MED LIST: APIX5TAB PO; CITA-104 PO; MULTI PO; NICO1PAT6 TRANSDERM; PANT40TA4 PO
[2017-04-14 14:01] VITALS: Ht 177.8 cm; Wt 74.5 kg
[2017-04-14] MEDS ORDERED: PROPOFOL 80 ML ONE (15:21)
--- NOTE | 2017-04-14 16:05 | OPPN ---
Date/Time of Note Date/Time of Note DATE: 04/14/17 TIME: 16:00 Proc Note GI Procedure Date 04/14/17 Pre-procedure Diagnosis * Dyspepsia/abdominal pain Post-procedure Diagnosis Assessment: * Multiple ulcerations in the prepyloric antrum of the stomach with severe deformity * Rule out CA (unlikely). Multiple biopsies obtained * Rule out H. pylori infection. Biopsies obtained Plan: * PPI therapy * Review pathology * Follow-up as previously scheduled * Follow-up EGD in 8 weeks Procedure Performed: Endoscopy (With biopsies) Surgeon see signature line Strategic Consultant none Anesthesia Type: MAC Anesthesiologist: ALEKSANDR AGUIAR none Transfusion required none Biopsy 1: Antral gastric ulcer Biopsy 2: Gastric body and antrum Grafts/Implants none Complication(s) none Pt Condition post procedure: stable Disposition: home Indications: upper abd Sx despite ther Procedure Description After informed consent, with the patient/relatives understanding the procedure, its indications, potential risks and complications, including but not limited to : allergic reaction, bleeding, perforation or infection, and after all pertinent questions were answered to the patients satisfaction, the patient/ relatives signed witnessed informed consent. Following this, premedication was administered slowly IV push under careful cardiovascular and respiratory monitoring with pulse oximetry, automatic blood pressure, and collections manager. Once the sedative effect was achieved the patient was place in the left lateral decubitus, the panendoscope was introduced and advanced under visual control. Careful examination of the upper gastrointestinal tract, both on insertion as well as withdrawal of the instrument disclosing the following findings: ESOPHAGUS: the mucosa of the entire esophagus was carefully examined and showed the following findings: the mucosa appears within normal limits. There is no evidence of esophagitis, varices, neoplasm, or stricture. No Hiatal Hernia identified. STOMACH: Upon entrance to the stomach air was insufflated, the gastric vyas distended normally. The mucosa of the fundus, body and antrum of the stomach was carefully examined both head-on and on retroflexion, and showed the following findings: There is extensive ulceration with at least 3 deep cratered ulcers in the antrum of the stomach. There is severe deformity of the prepyloric area. Multiple biopsies were obtained. The pylorus is deformed but patent. Biopsies were also obtained through the body and antrum of the stomach to rule out H. pylori infection. Otherwise the mucosa appears within normal limits with no abnormalities. There is no evidence of neoplasm. PYLORUS: The pylorus was carefully examined and showed the following findings: []the pylorus appears patent and within normal limits, with no evidence of gastric outlet obstruction. DUODENUM: The duodenal mucosa was carefully examined in the duodenal bulb as well as the second portion of the duodenum and showed the following findings: []the mucosa appears unremarkable with no evidence of duodenitis, ulcer or neoplasm. Copies To: CC: ALEJANDRA MISTRY MD, MORDO MD Apr 14, 2017 16:05
--- NOTE | 2017-04-14 16:08 | OPPN ---
Date/Time of Note Date/Time of Note DATE: 04/14/17 TIME: 16:06 Proc Note GI Procedure Date 04/14/17 Pre-procedure Diagnosis * Hematochezia Post-procedure Diagnosis Assessment: * 4 mm sessile polyp distal sigmoid colon. Ablated * Otherwise normal colonic mucosa to cecum * Moderate-sized internal hemorrhoids, likely source of hematochezia Plan: * Review pathology as soon as available * Annual Hemoccult stool testing * High-fiber diet * Surveillance colonoscopy in 5 years Surgeon see signature line Project Executive none Anesthesia Type: MAC Anesthesiologist: ALEKSANDR AGUIAR none Transfusion required none Biopsy 1: Sigmoid polyp Grafts/Implants none Complication(s) none Pt Condition post procedure: stable Disposition: home Indications: lower GI bleed Procedure Description After informed consent, with the patient/relatives understanding the procedure, its indications and potential risks and complications, including but not limited to: Allergic reaction, bleeding, perforation, infection, and after all pertinent questions were answered to the patient's satisfaction, the patient/ relatives signed the witnessed informed consent. Following this, premedication was administered slowly IV push under careful cardiovascular and respiratory monitoring with pulse OXIMETRY, automatic blood pressure, and classroom monitor. Once the sedative effect was achieved, the patient was placed in the left lateral decubitus position, digital rectal examination was performed. The colonoscope was then introduced and advanced under visual control throughout all segments of the colon including: the rectum, sigmoid, descending colon, splenic flexure, transverse colon, hepatic flexure, ascending colon and finally reaching the cecum which was clearly identified by transillumination, finger indentation and the ileocecal valve. Careful examination of the mucosa of the lower gastrointestinal tract both on insertion as well as withdrawal of the instrument disclosed the following findings: PREPARATION QUALITY: [Adequate], RECTAL EXAM: The anorectal area was visualized examined and digital rectal examination performed with the following findings: No evidence of perirectal disease, no masses. COLONIC MUCOSA: The mucosa of all segments of the colon was carefully examined and showed the following findings: There is 4 mm sessile polyp in the distal sigmoid colon. Ablated with biopsy forceps. Otherwise the examined mucosa appears within normal limits. There is no evidence of inflammatory changes, diverticular formation, other neoplasms, vascular malformation, or any other abnormality. Moderate-sized internal hemorrhoids The instrument was then withdrawn, the patient tolerated the procedure well and was transferred out of the Endoscopy Suite awake and in good condition to continue recovery under observation. Copies To: CC: ALEJANDRA MISTRY MD, MORDO MD Apr 14, 2017 16:08
== END 2017-04-14 18:55 | disposition home or self-care (01) ==
LOC: GIL 12:51
PROVIDERS: ATTEND Internal Medicine Gastroenterology
DX: K92.1 Melena (principal); D12.5 Benign neoplasm of sigmoid colon; K25.9 Gastric ulcer, unspecified as acute or chronic, without hemorrhage or perforation
CPT/HCPCS: 43239; 45380; 88305; 88312; Z7610

== ENCOUNTER → 2017-05-13 | Outpatient (CLI) | payer OTHER ==
[~2017-05-13] MED LIST changes: +IOHEXOL 300MG/ML 150 ML BTL ONE; -NICO1PAT6 TRANSDERM; +SOD CHLORIDE 0.9% 100 ML ONE
--- NOTE | 2017-05-14 10:25 | RADRPT ---
PROCEDURE: CT Abdomen and Pelvis with contrast. CLINICAL INDICATION: Abdominal pelvic pain. Chronic embolism. Follow-up. TECHNIQUE: CT scan of the abdomen and pelvis with contrast was performed on a multi-detector high- resolution CT scanner. The patient was scanned following the uncomplicated intravenous administrati on of 100 cc of Omnipaque 300. Multiphase postcontrast imaging was obtained through the abdominal p elvic cavity. Coronal and sagittal reformatted images were obtained from the axial source images. Im ages were reviewed on a high-resolution PACS workstation. The total exam CTDI equals 11.12, 8.94 mGy and the total exam DLP equals 930.63 mGy-cm. One or more of the following dose reduction techniques were used: - Automated exposure control. - Adjustment of the mA and/or kV according to patient size. - Use of iterative reconstruction technique. COMPARISON: CT scan 01/07/2017 FINDINGS: CT abdomen: The lung bases are clear. The heart size is normal, without pericardial thickening or effusion. Th e liver is normal in size and density without focal mass or intrahepatic biliary dilatation. The sp fran is normal in size and homogeneous in density. The stomach is partially collapsed, but is gross ly unremarkable. The pancreas as visualized is normal. The gallbladder and biliary tree are unrema rkable and there is no evidence for biliary dilatation. The adrenal glands are symmetric and normal . The kidneys are symmetrically unremarkable as well. No renal calculus or obstructive uropathy or mass lesion is seen. The aorta is of normal caliber. Aortic vascular calcifications are present. There is no retroperitoneal lymphadenopathy. The rd hepatis region is clear. The bowel and mese ntery, as visualized, are equally unremarkable. There is normal enhancement of the splenic vein and portal vein. There is no thrombus. CT pelvis: The small bowel loops situated within the pelvis are unremarkable. Retrocecal appendix is identified and is normal. The pelvic organs are normal. The pelvic sidewalls and inguinal regions are clear. The sigmoid colon and rectum are unremarkable. No mass or adenopathy is seen. No free fluid is kiah ntified. No acute inflammation is seen. The bladder is normal. The surrounding osseous structures are unremarkable. Mild isolated discogenic disease and disc space narrowing at the L3-4 level. No osteolytic or osteoblastic lesion is detected. IMPRESSION: 1. Unremarkable CT scan of the abdomen and pelvis. 2. No mass, lymphadenopathy, or focal acute inflammatory process. 3. No thrombus is seen within the splenic vein or portal vein. RPTAT: HMJB .Reymundo Castanon MD, Date Time Electronically viewed and signed by .Reymundo Castanon MD, MD on 05/14/2017 10:25 .B/
== END | disposition home or self-care (01) ==
LOC: C/S 12:28
PROVIDERS: ATTEND Internal Medicine Hematology & Oncology
DX: I74.9 Embolism and thrombosis of unspecified artery (principal)
CPT/HCPCS: 74177; Q9967; Z7610

== ENCOUNTER 2017-09-29 12:03 | Day surgery (SDC) | END 2017-09-29 16:23 | disposition home or self-care (01) ==